=== PATIENT | female | born 1980 | race African-American/Black ===

== ENCOUNTER 2016-07-26 16:29 | Emergency (ER) | payer OTHER ==
[~2016-07-26] VITALS: Ht 165.1 cm; Wt 98.4 kg
[~2016-07-26 16:29] MED LIST: AUGMENTIN 875 M1 TAB PO; DIVALPROEX SOD500 MG PO; FLEXERIL 5MG TAB5 MG PO; LORAZEPAM1 MG PO; NORCO 325 MG-51 TAB PO; TRAZODONE HCL50 MG PO
[2016-07-26 16:49] VITALS: BP 120/88
--- NOTE | 2016-07-26 17:29 | ED GI/GU/ABDOMINAL COMPLAINT ---
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 Triage Nurses Notes Reviewed? yes ? N Is pt currently ? No Onset: Abrupt Duration: THIS MORNING Timing: multiple episodes today Quality/Severity: mild Prior Abdominal Problems: none No Modifying Factors: none Associated Symptoms: dysuria, urinary frequency HPI: 35 year old female who presents to the ER for chief complaint of blood in her urine. She reports dysuria since this morning. No fever, chills or abdominal pain. Past History Travel History Traveled to [place] past 21 day No Medical History Any Pertinent Medical History? see below for history Neurological: NONE EENT: NONE Cardiovascular: NONE Respiratory: NONE Gastrointestinal: NONE Hepatic: NONE Renal: NONE Musculoskeletal: NONE Psychiatric: anxiety Endocrine: NONE Blood Disorders: NONE Cancer(s): NONE [employer]/Reproductive: endometriosis, ECTOPIC Influenza Vaccine: 03/25/13 Tetanus Vaccine: 03/26/14 Surgical History Surgical History: non-contributory Psychosocial History Who do you live with Patient/Self Services at Home None What is your primary language Frisian Tobacco Use: Never used ETOH Use: denies use Illicit Drug Use: denies illicit drug use Family History Hx Contributory? No Review of Systems Review of Systems Constitutional: Denies: chills, fever. EENTM: Reports: no symptoms. Respiratory: Denies: cough, short of breath. Cardiovascular: Denies: chest pain. GI: Denies: abdominal pain, nausea, vomiting. Genitourinary: Reports: dysuria, hematuria. Musculoskeletal: Denies: back pain. Skin: Reports: no symptoms. Neurological/Psychological: Reports: no symptoms. Hematologic/Endocrine: Reports: bleeding, polyuria. Denies: bruising, polydipsia. Immunologic/Allergic: Denies: splenectomy. All Other Systems: Reviewed and Negative Physical Exam Physical Exam General Appearance: alert, awake Head: atraumatic, active bleeding Eyes: Bilateral: normal appearance, PERRL, EOMI. Ears, Nose, Throat, Mouth: hearing grossly normal, moist mucous membrane Neck: normal inspection, supple, full range of motion Respiratory: normal breath sounds, chest non-tender, no respiratory distress Cardiovascular: regular rate/rhythm Peripheral Pulses: 2+ radial (R), 2+ radial (L) Gastrointestinal: normal bowel sounds, soft, non-tender Back: normal inspection, normal range of motion Extremities: normal range of motion Neurologic/Psych: no motor/sensory deficits, awake, alert, oriented x 3 Core Measures ACS in differential dx? No Severe Sepsis Present: No Septic Shock Present: No Progress Differential Diagnosis: UTI/pyelo, polyp,malignancy Plan of Care: Orders Procedure Date/time Status Add-on Test (ER Only) 07/26 1742 Active URINE 07/26 1650 Complete URINALYSIS 07/26 1650 Complete Laboratory Tests 07/26/16 1710: Urinalysis LIGHT H, Urine Color YEL, Urine Clarity CLDY H, Urine pH 6.5, Ur Specific [place] >= 1.030, Urine Protein 100 H, Urine Ketones NEG, Urine Nitrite NEG, Urine Bilirubin NEG, Urine Urobilinogen 0.2, Ur Leukocyte Esterase SMALL H, Ur Microscopic SEDIMENT EXAMINED, Urine RBC >75 H, Urine WBC 25-50 H , Ur Epithelial Cells MOD H, Urine Mucus MOD H, Urine Hemoglobin LARGE H, Urine Glucose NEG, Urine Test NEGATIVE Initial ED EKG: none Departure Departure Time of Disposition: 1745 Disposition: HOME OR SELF CARE Condition: Stable Clinical Impression Primary Impression: UTI (urinary tract infection) Referrals: SUSAN CHEUNG (PCP/Family) Additional Instructions: Take the Bactrim and Pyridium as directed. Your prescriptions [facility]. Please drink plenty of fluids and follow-up with her doctor in the office. Return to the ER for any changing or worsening symptoms. Departure Forms: Customer Survey General Discharge Information Prescriptions: Current Visit Scripts Sulfamethoxazole/Trimethoprim (Bactrim Ds Tablet) 1 TAB PO BID #6 TAB Phenazopyridine HCl (Pyridium) 1 TAB PO TID #6 TAB
[2016-07-26] MEDS ORDERED: PYRIDIUM200 M1 PO (17:47)
[2016-07-26] MEDS ORDERED: BACTRIM DS TAB1 EACH PO (17:47)
[2016-07-26] MEDS ORDERED: QUETIAPINE FUM100 M1 PO (17:49)
== END 2016-07-26 17:57 ==
LOC: ERH 16:29
DX: N39.0 Urinary tract infection, site not specified (principal)
CPT/HCPCS: 81001; 81025; 87086